=== PATIENT | male | born 1950 | race Caucasian/White ===

== ENCOUNTER 2017-06-08 06:15 | Inpatient (IN) ==
[2017-06-08] MEDS ORDERED: 0.9 % Sodium Chloride 500 ML IVC ONE (06:49)
[2017-06-08 06:58] LABS: Basophils % 0.3 %; Eosinophils # 0.3 K/mcL (0.0-0.6); Eosinophils % 2.2 %; Hemoglobin 19.4 g/dL (12.9-16.9); Immature Granulocytes % 0.5 % (0-4); Lymphocytes # 1.8 K/mcL (0.6-4.6); Lymphocytes % 12.7 %; Mean Corpuscular Hemoglobin 29.8 pg (28.0-33.3); Mean Corpuscular Volume 87.4 fL (83.0-100.0); Mean Platelet Volume 9.5 fL (9.4-12.4); Monocytes # 1.1 K/mcL (0.0-1.3); Neutrophils # 10.6 K/mcL (1.6-8.9); Platelet Count 197 K/mcL (140-400); Red Blood Count 6.52 M/mcL (4.19-5.50); Red Cell Distribution Width 13.9 % (11.5-14.5); Segmented Neutrophils % 76.3 %
[2017-06-08 07:11] LABS: Alanine Aminotransferase 23 Units/L (7-52); Albumin 4.2 g/dL (3.5-5.7); Albumin/Globulin Ratio 1.6 (1.1-2.2); Alkaline Phosphatase 91 Units/L (34-104); Aspartate Amino Transferase 22 Units/L (13-39); BUN/Creatinine Ratio 23 (6-26); Bilirubin,Direct 0.2 mg/dL (0.0-0.2); Bilirubin,Indirect 0.8 mg/dL (0.0-1.2); Blood Urea Nitrogen 17 mg/dL (8-23); Calcium 9.1 mg/dL (8.6-10.3); Carbon Dioxide 23 mEq/L (23-29); Chloride 104 mEq/L (98-107); Globulin 2.7 g/dL (2.4-3.5); Glucose 175 mg/dL (70-105); Lipase 214 Units/L (11-82); Osmolality,Calculated 294 (280-300); Potassium 3.6 mEq/L (3.5-5.1); Sodium 139 mEq/L (136-145); Total Protein 6.9 g/dL (6.4-8.9); eGFR For African Americans > 60 (> 60); eGFR For Non-African Americans > 60 (> 60)
[2017-06-08] MEDS ORDERED: *HR* FentaNYL (PF) 100 MCG/2 ML VIAL IVP ONE ×2 (07:11→09:07)
[2017-06-08] MEDS ORDERED: Ondansetron 4 MG/2 ML VIAL IVP ONE ×2 (07:11→09:07)
[2017-06-08 07:14] LABS: Bilirubin,Urine Negative (Negative); Blood,Urine Negative (Negative); Clarity,Urine Clear (Clear); Color,Urine Yellow (Yellow); Glucose,Urine (UA) >=1000 mg/dL (Normal); Ketones,Urine 40 mg/dL (Negative); Leukocyte Esterase,Urine Negative (Negative); Nitrite,Urine Negative (Negative); PH,Urine 5.5 pH Units (5.0-8.0); Protein,Urine Negative (Neg-Trace); Specific Gravity,Urine > 1.030 (1.010-1.025); Urobilinogen,Urine Normal (Normal)
--- NOTE | 2017-06-08 07:14 | Emergency Department Note ---
Disposition Clinical Impression: Elevated lipase Abdominal pain Qualifiers: Abdominal location: epigastric Qualified Code(s): R10.13 - Epigastric pain Nausea and vomiting Qualifiers: Vomiting type: unspecified Vomiting Intractability: non-intractable Qualified Code(s): R11.2 - Nausea with vomiting, unspecified Disposition: Admitted As Inpatient Condition: Good Referrals: Delfina Clifton DO [Primary Care Provider] - Abdominal Pain HPI - General Chief Complaint: ED Abdominal Pain Stated Complaint: CP/ABD PAIN Time Seen by Provider: 06/08/17 06:32 Source: patient Mode of arrival: private vehicle Limitations: no limitations Nursing Notes Reviewed: Yes Vital Signs Reviewed: Yes - History of Present Illness HPI Narrative: 67-year-old male history of hypertension, diabetes, hyperlipidemia with prior abdominal surgical history of cholecystectomy who presents to the ER with chief complaint of abdominal pain nausea and vomiting. Reports intermittent abdominal pain for 4 days. Reports the pain is around his belly button and epigastric area. Denies prior history of pain like this in the past. He states during this time is been nauseated, belching and did have a couple episodes of emesis. Reports usually has a few bowel movements a day and last bowel movement was yesterday. He is reporting that he passing flatus. No fevers, dysuria or hematuria. No other complaints. Pt Subjective Complaint: abdominal pain Onset (ago): day(s) Consistency: intermittent Location: periumbilical, epigastric Pain Severity: moderate Pain Scale: 8 Quality: stabbing Radiation: none Migration to: no migration Improves with: nothing Worsens with: nothing Associated symptoms: Reports: nausea, vomiting. Denies: diarrhea, fever, dysuria, hematuria Treatments prior to arrival: none - Related Data Home Medications Medication Instructions Recorded Confirmed Acetaminophen [Tylenol] 650 mg PO BID PRN 05/12/17 06/08/17 Aspirin 81 mg PO DAILY 05/12/17 06/08/17 Canagliflozin [Invokana] 300 mg PO DAILY 05/12/17 06/08/17 Cyanocobalamin (Vitamin B-12) 1,000 mcg PO DAILY 05/12/17 06/08/17 [Vitamin B-12] Gabapentin [Neurontin] 300 mg PO HS 05/12/17 06/08/17 Omeprazole [PriLOSEC] 20 mg PO DAILY 05/12/17 06/08/17 Simvastatin [Zocor] 40 mg PO HS 05/12/17 06/08/17 hydroCHLOROthiazide 25 mg PO DAILY 05/12/17 06/08/17 [Hydrochlorothiazide] metFORMIN [Glucophage] 500 mg PO BIDWM 05/12/17 06/08/17 Allergies Allergy/AdvReac Type Severity Reaction Status Date / Time No Known Allergies Allergy Verified 06/08/17 06:27 All systems ED: reviewed and negative except as stated. Constitutional: Denies: fever Cardiovascular: Reports: chest pain Respiratory: Denies: dyspnea Gastrointestinal: Reports: abdominal pain, nausea, vomiting. Denies: diarrhea Genitourinary: Denies: dysuria, hematuria Abdominal Pain PMH - Past Medical History Medical history: Reports: diabetes, hypertension, kidney stones, TIA Male Surgical History: Reports: cholecystectomy Psychiatric history: Reports: PTSD - Social History Smoking status: Never smoker Alcohol use: Reports: none Drug use: Reports: none Physical Exam - General Limitations: no limitations General appearance: alert, in no apparent distress - Head Head exam: atraumatic - Eye Eye exam: Present: normal appearance - ENT ENT exam: normal exam - Neck Neck exam: Present: normal inspection - Chest Chest inspection: Present: normal inspection, symmetric chest wall rise - Respiratory Respiratory exam: Present: normal lung sounds bilaterally - Cardiovascular Cardiovascular exam: Present: regular rate, normal rhythm, normal heart sounds - Abdominal Exam Abdominal exam: Present: soft, tenderness (Patient has epigastric and periumbilical tenderness on exam without rigidity or guarding. He does appear to be distended on exam which he reports is new.), distention. Absent: guarding , rebound - Extremities Exam Extremities exam: Present: normal inspection, full ROM - Expanded Upper Extremity Exam Shoulder exam: Present: normal inspection, full ROM Arm exam: Present: normal inspection, full ROM Elbow exam: Present: normal inspection, full ROM Forearm/Wrist exam: Present: normal inspection, full ROM Hand exam: Present: normal inspection, full ROM - Expanded Lower Extremity Exam Hip/Pelvis exam: Present: normal inspection, full ROM Upper leg exam: Present: normal inspection, full ROM Knee exam: Present: normal inspection, full ROM Lower leg exam: Present: normal inspection, full ROM Ankle exam: Present: normal inspection, full ROM Foot/toe exam: Present: normal inspection, full ROM - Skin Skin exam: Present: warm, dry Course Course Narrative: Patient seen and examined. Vital signs reviewed. He is noted to have abdominal distention. He is complaining of pain in his epigastric area that feels like it is pushing up into his chest likely secondary to condition. However we will get an EKG, troponin, CT scan of the abdomen and pelvis with oral and IV contrast as well as labs and urinalysis. Patient given IV fluids, fentanyl and Zofran. Vital Signs Temperature 97.8 F 06/08/17 06:22 Pulse Rate 96 06/08/17 06:22 Respiratory Rate 20 06/08/17 06:22 Blood Pressure 157/87 06/08/17 06:22 O2 Sat by Pulse Oximetry 96 06/08/17 06:22 Temperature 97.8 F 06/08/17 06:22 Pulse Rate 90 06/08/17 07:12 Respiratory Rate 20 06/08/17 07:12 Blood Pressure 160/100 06/08/17 07:12 O2 Sat by Pulse Oximetry 93 06/08/17 07:12 Oxygen Delivery Oxygen Delivery Room Air Abdominal Pain - MDM Narrative Medical decision making narrative: 67-year-old male presents to the ER due to abdominal pain nausea and vomiting. Pain intermittently for 4 days. Woke up vomiting today. He is noted to have an elevated lipase of 214. CT scan without evidence of acute pathology. Patient given IV fluids, pain meds and nausea meds 2. He is admitted to the hospitalist service for further management. - Lab Data Lab results reviewed: Yes I reviewed the patient's lab results. Result diagrams: 06/08/17 06:33 06/08/17 06:33 Lab Results 06/08/17 06/08/17 06/08/17 Range/Units 06:33 06:33 06:33 WBC 13.8 H (4.3-11.1) K/mcL RBC 6.52 H (4.19-5.50) M/mcL Hgb 19.4 H (12.9-16.9) g/dL Hct 57.0 H (37.5-50.1) % MCV 87.4 (83.0-100.0) fL MCH 29.8 (28.0-33.3) pg MCHC 34.0 (31.6-35.5) g/dL RDW 13.9 (11.5-14.5) % Plt Count 197 (140-400) K/mcL MPV 9.5 (9.4-12.4) fL Immature Gran % 0.5 (0-4) % Seg Neutrophils % 76.3 % Lymphocytes % 12.7 % Monocytes % 8.0 % Eosinophils % 2.2 % Basophils % 0.3 % Neutrophils # 10.6 H (1.6-8.9) K/mcL Lymphocytes # 1.8 (0.6-4.6) K/mcL Monocytes # 1.1 (0.0-1.3) K/mcL Eosinophils # 0.3 (0.0-0.6) K/mcL Basophils # 0.0 (0.0-0.2) K/mcL Sodium 139 (136-145) mEq/L Potassium 3.6 (3.5-5.1) mEq/L Chloride 104 (98-107) mEq/L Carbon Dioxide 23 (23-29) mEq/L BUN 17 (8-23) mg/dL Creatinine 0.74 (0.70-1.30) mg/dL Est GFR ( Amer) > 60 (> 60) Est GFR (Non-Af Amer) > 60 (> 60) BUN/Creatinine Ratio 23 (6-26) Glucose 175 H (70-105) mg/dL Calculated Osmolality 294 (280-300) Lactic Acid 1.6 (0.5-2.2) mmol/L Calcium 9.1 (8.6-10.3) mg/dL Total Bilirubin 1.0 (0.3-1.0) mg/dL Direct Bilirubin 0.2 (0.0-0.2) mg/dL Indirect Bilirubin 0.8 (0.0-1.2) mg/dL AST 22 (13-39) Units/L ALT 23 (7-52) Units/L Alkaline Phosphatase 91 (34-104) Units/L Troponin I (< 0.04) ng/mL Serum Total Protein 6.9 (6.4-8.9) g/dL Albumin 4.2 (3.5-5.7) g/dL Globulin 2.7 (2.4-3.5) g/dL Albumin/Globulin Ratio 1.6 (1.1-2.2) Lipase 214 H (11-82) Units/L Urine Color (Yellow) Urine Clarity (Clear) Urine pH (5.0-8.0) pH Units Ur Specific [place] (1.010-1.025) Urine Protein (Neg-Trace) mg/dL Urine Glucose (UA) (Normal) mg/dL Urine Ketones (Negative) mg/dL Urine Blood (Negative) Urine Nitrite (Negative) Urine Bilirubin (Negative) Urine Urobilinogen (Normal) mg/dL Ur Leukocyte Esterase (Negative) Ur Culture Indicated? (NO) 06/08/17 06/08/17 Range/Units 06:33 06:56 WBC (4.3-11.1) K/mcL RBC (4.19-5.50) M/mcL Hgb (12.9-16.9) g/dL Hct (37.5-50.1) % MCV (83.0-100.0) fL MCH (28.0-33.3) pg MCHC (31.6-35.5) g/dL RDW (11.5-14.5) % Plt Count (140-400) K/mcL MPV (9.4-12.4) fL Immature Gran % (0-4) % Seg Neutrophils % % Lymphocytes % % Monocytes % % Eosinophils % % Basophils % % Neutrophils # (1.6-8.9) K/mcL Lymphocytes # (0.6-4.6) K/mcL Monocytes # (0.0-1.3) K/mcL Eosinophils # (0.0-0.6) K/mcL Basophils # (0.0-0.2) K/mcL Sodium (136-145) mEq/L Potassium (3.5-5.1) mEq/L Chloride (98-107) mEq/L Carbon Dioxide (23-29) mEq/L BUN (8-23) mg/dL Creatinine (0.70-1.30) mg/dL Est GFR ( Amer) (> 60) Est GFR (Non-Af Amer) (> 60) BUN/Creatinine Ratio (6-26) Glucose (70-105) mg/dL Calculated Osmolality (280-300) Lactic Acid (0.5-2.2) mmol/L Calcium (8.6-10.3) mg/dL Total Bilirubin (0.3-1.0) mg/dL Direct Bilirubin (0.0-0.2) mg/dL Indirect Bilirubin (0.0-1.2) mg/dL AST (13-39) Units/L ALT (7-52) Units/L Alkaline Phosphatase (34-104) Units/L Troponin I < 0.03 (< 0.04) ng/mL Serum Total Protein (6.4-8.9) g/dL Albumin (3.5-5.7) g/dL Globulin (2.4-3.5) g/dL Albumin/Globulin Ratio (1.1-2.2) Lipase (11-82) Units/L Urine Color Yellow (Yellow) Urine Clarity Clear (Clear) Urine pH 5.5 (5.0-8.0) pH Units Ur Specific [place] > 1.030 H (1.010-1.025) Urine Protein Negative (Neg-Trace) mg/dL Urine Glucose (UA) >=1000 H (Normal) mg/dL Urine Ketones 40 H (Negative) mg/dL Urine Blood Negative (Negative) Urine Nitrite Negative (Negative) Urine Bilirubin Negative (Negative) Urine Urobilinogen Normal (Normal) mg/dL Ur Leukocyte Esterase Negative (Negative) Ur Culture Indicated? NO (NO) - Radiology Data Radiology results reviewed: Yes I reviewed the patient's radiology results. Abdomen/Pelvis CT 06/08/17 08:00 IMPRESSION: 1. No acute abnormality. 2. New fine peripheral interstitial thickening within the bilateral bases due the due to interstitial edema or interstitial lung disease. D/ / Woody Sow MD / Woody Sow MD Interpreting Provider: Woody Sow MD - EKG Data EKG attestation: Yes I reviewed and interpreted this EKG. EKG results narrative: EKG demonstrates sinus rhythm with rate of 93 bpm. Left axis deviation. Normal intervals. Poor R-wave progression. No gross ST elevations or depressions. No acute ischemic findings. No significant changes from previous EKG dated 08/10/09. S.B.A.R. - S.B.A.R. Situation: Demographics, MOA Background: Presenting Complaint, Relevant PMH, Meds, & Allergies Assessment: Course and respsone to treatment, Exam Concerns, Patient/Family Expectation, Pertinant Lab Results Recommendation: Barrier(s) to disposition, Recommendation based on pending studies, treatments, or consults [place] Report Given to: Dr.Haley Hagan Repor Time: 09:41 Attestation Statement - Attestation Attestation: I examined this patient and my medical decision-making was reviewed with the Resident Physician, Dr. Jaramillo. I agree with the documented findings, disposition and treatment plan as described except to the extent set forth below. Patient is a 59-year-old white male with a history of diabetes, hypertension, hyperlipidemia presents to the emergency department today with a 4 day history of gradually worsening epigastric abdominal pain that radiates through to his back with worsening feelings of distention, and in the last 24 hours has developed nausea and vomiting. Patient is status post remote cholecystectomy and denies any alcohol intake. Patient states he has been moving his bowels fine he will have occasional loose stools and had one loose stool this morning but no history of diarrhea associated with his vomiting. Patient denies any fevers or chills, no ill contacts, no recent antibiotic use. I agree with the patient's physical exam findings as documented. Vital signs are stable. Patient's labs show mild leukocytosis with left shift as well as mild hyperglycemia without acidosis. Patient's lipase is elevated in the 200s. Patient's CT with IV contrast does not show any acute abdominal or pelvic pathology. Concerning with patient's symptoms, location of pain and elevated lipase that he has early acute pancreatitis. Patient will be continued on IV fluids, pain meds, nothing by mouth status and admitted for observation and serial abdominal exams. Patient agrees with this plan case was discussed with the hospitalist who accepted the patient for admission.
--- NOTE | 2017-06-08 10:52 | Internal Med History&Physical ---
Date of Encounter: 06/08/17 Time of Encounter: 09:00 Assessment and Plan (1) Acute pancreatitis Current visit: No Status: Acute -Patient with epigastric pain for several weeks to months, worsening in the last 3-4 days; last episode occurred 3 hours after eating pizza -Lipase slightly elevated at 214; no acute findings on abdominal CT -Will keep nothing by mouth with IV fluids and pain control Qualifiers: Acute pancreatitis complication: unspecified Qualified Code(s): K85.90 - Acute pancreatitis without necrosis or infection, unspecified (2) Diabetes Current visit: No Status: Acute -Blood glucose levels controlled; continue home oral diabetic medications Qualifiers: Qualified Code(s): E11.9 - Type 2 diabetes mellitus without complications (3) Hyperlipemia Current visit: No Status: Acute -Check fasting lipids; continue statin Qualifiers: Hyperlipidemia type: unspecified Qualified Code(s): E78.5 - Hyperlipidemia , unspecified (4) Dependent edema Current visit: No Status: Acute -Patient unsure why he takes medication but thinks because of lower extremity edema -Will hold hydrochlorothiazide. 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 Patient reports of intermittent epigastric pain which has occurred for approximately weeks to months but has worsened in the last 3-4 days. Patient describes discomfort as a gnawing ache with a severity of 8 out of 10 that is intermittent, lasting for minutes. Patient states the last episode occurred approximately 3 hours after eating pizza which he later also had nausea and vomiting. Patient decided come into the ER for evaluation. In the ER patient was found to have slightly increased lipase levels of 214; CT of the abdomen without any acute findings. Patient will be admitted to the medical surgical floor for management of acute pancreatitis. Past Med Surg Social Fam HX - Past Medical History Medical history: diabetes, hyperlipidemia, hypertension, kidney stones, TIA Psychiatric history: PTSD - Past Surgical History Surgical History: cholecystectomy - Social History Smoking Status: Never smoker Smokeless Tobacco Status: No Alcohol use: none Drug use: none Internal Medicine - H&P: Meds Acetaminophen [Tylenol] 650 mg PO BID PRN 05/12/17 [History] Aspirin 81 mg PO DAILY 05/12/17 [History] Canagliflozin [Invokana] 300 mg PO DAILY 05/12/17 [History] Cyanocobalamin (Vitamin B-12) [Vitamin B-12] 1,000 mcg PO DAILY 05/12/17 [ History] Gabapentin [Neurontin] 300 mg PO HS 05/12/17 [History] Omeprazole [PriLOSEC] 20 mg PO DAILY 05/12/17 [History] Simvastatin [Zocor] 40 mg PO HS 05/12/17 [History] hydroCHLOROthiazide [Hydrochlorothiazide] 25 mg PO DAILY 05/12/17 [History] metFORMIN [Glucophage] 500 mg PO BIDWM 05/12/17 [History] 3 Allergy/AdvReac Type Severity Reaction Status Date / Time No Known Allergies Allergy Verified 06/08/17 06:27 All Systems PM: A 10-system review of systems was performed and is negative for pertinent findings except as documented above in the HPI. - Constitutional Vitals: Temp Pulse Resp BP Pulse Ox 97.8 F 90 18 141/81 93 06/08/17 06:22 06/08/17 07:12 06/08/17 10:01 06/08/17 10:01 06/08/17 07:12 General appearance: Present: A&O X 3, no acute distress, obese - Eye Eye exam: Present: normal appearance - ENT ENT exam: Present: mucous membranes dry - Respiratory Respiratory exam: Present: CTAB. Absent: accessory muscle use, rales, rhonchi, wheezes - Cardiovascular Cardiovascular exam: Present: RRR, +S1, +S2. Absent: diastolic murmur, gallop, rubs, systolic murmur - GI/Abdominal GI/Abdominal exam: Present: tenderness (Generalized tenderness most pronounced in the epigastric region) - Neurological Exam Neurological exam: Present: oriented X3 - Psychiatric Psychiatric exam: Present: normal mood - Skin Skin exam: Present: normal color Internal Med - H&P Results - Labs CBC & Chem 7: 06/08/17 06:33 06/08/17 06:33 Labs: Short CBC 06/08/17 Range/Units 06:33 WBC 13.8 H (4.3-11.1) K/mcL Hgb 19.4 H (12.9-16.9) g/dL Hct 57.0 H (37.5-50.1) % Plt Count 197 (140-400) K/mcL Neutrophils # 10.6 H (1.6-8.9) K/mcL BMP 06/08/17 06:33 Sodium 139 Potassium 3.6 Chloride 104 Carbon Dioxide 23 BUN 17 Creatinine 0.74 Glucose 175 H Calcium 9.1 Cardiac Enzymes 06/08/17 Range/Units 06:33 Troponin I < 0.03 (< 0.04) ng/mL Liver Function 06/08/17 Range/Units 06:33 Total Bilirubin 1.0 (0.3-1.0) mg/dL Direct Bilirubin 0.2 (0.0-0.2) mg/dL AST 22 (13-39) Units/L ALT 23 (7-52) Units/L Alkaline Phosphatase 91 (34-104) Units/L Albumin 4.2 (3.5-5.7) g/dL Urine 06/08/17 Range/Units 06:56 Urine Color Yellow (Yellow) Urine Clarity Clear (Clear) Urine pH 5.5 (5.0-8.0) pH Units Ur Specific [place] > 1.030 H (1.010-1.025) Urine Protein Negative (Neg-Trace) mg/dL Urine Glucose (UA) >=1000 H (Normal) mg/dL - Impressions ITS Impressions Abdomen/Pelvis CT 06/08/17 08:00 IMPRESSION: 1. No acute abnormality. 2. New fine peripheral interstitial thickening within the bilateral bases due the due to interstitial edema or interstitial lung disease. D/ / Woody Sow MD / Woody Sow MD Interpreting Provider: Woody Sow MD
[2017-06-08] MEDS ORDERED: Naloxone 0.4 MG/ML INJ IVP PRN (11:10)
[2017-06-08] MEDS: Ketorolac 30 MG/ML VIAL IVP SCH ×3 (12:02→23:36)
[2017-06-08] MEDS: 0.9 % Sodium Chloride 1,000 ML IVC SCH ×2 (12:03→19:52)
[2017-06-08] MEDS: *HR* Heparin 5,000 UNIT/ML VIAL SQ SCH ×2 (14:17→19:58)
[2017-06-08] MEDS ORDERED: Gabapentin 300 MG CAPSULE PO SCH (21:00)
[2017-06-09] MEDS: 0.9 % Sodium Chloride 1,000 ML IVC SCH ×2 (01:31→03:50)
[2017-06-09 06:16] LABS: Basophils % 0.6 %; Eosinophils # 0.4 K/mcL (0.0-0.6); Eosinophils % 5.3 %; Hematocrit 50.3 % (37.5-50.1); Immature Granulocytes % 0.3 % (0-4); Lymphocytes # 1.8 K/mcL (0.6-4.6); Lymphocytes % 25.4 %; Mean Corpuscular Hemoglobin 30.3 pg (28.0-33.3); Mean Corpuscular Volume 89.2 fL (83.0-100.0); Mean Platelet Volume 9.3 fL (9.4-12.4); Monocytes # 0.7 K/mcL (0.0-1.3); Monocytes % 9.5 %; Neutrophils # 4.2 K/mcL (1.6-8.9); Platelet Count 143 K/mcL (140-400); Red Blood Count 5.64 M/mcL (4.19-5.50); Red Cell Distribution Width 13.6 % (11.5-14.5); Segmented Neutrophils % 58.9 %
[2017-06-09 06:19] LABS: Hemoglobin 17.1 g/dL (12.9-16.9)
[2017-06-09] MEDS: Ketorolac 30 MG/ML VIAL IVP SCH ×2 (06:38→12:00)
[2017-06-09] MEDS: *HR* Heparin 5,000 UNIT/ML VIAL SQ SCH (06:39)
[2017-06-09 06:56] LABS: BUN/Creatinine Ratio 24 (6-26); Blood Urea Nitrogen 19 mg/dL (8-23); Calcium 8.3 mg/dL (8.6-10.3); Carbon Dioxide 28 mEq/L (23-29); Chloride 106 mEq/L (98-107); Chol/HDL Ratio 3.5 (0-4.9); Cholesterol 91 mg/dL (< 200); Glucose 96 mg/dL (70-105); HDL Cholesterol 26 mg/dL (40-59); LDL Cholesterol,Calculated 42 mg/dL (0-99); Lipase 28 Units/L (11-82); Osmolality,Calculated 294 (280-300); Potassium 3.5 mEq/L (3.5-5.1); Sodium 141 mEq/L (136-145); Triglycerides 113 mg/dL (< 150); eGFR For African Americans > 60 (> 60); eGFR For Non-African Americans > 60 (> 60)
[2017-06-09] MEDS ORDERED: (Canagliflozin [Invokana] 300 MG) PO SCH (09:00)
[2017-06-09] MEDS ORDERED: Pantoprazole 40 MG VIAL IVP SCH (09:00)
[2017-06-09 10:53] VITALS: BP 98/61
--- NOTE | 2017-06-09 11:29 | Discharge Summary ---
<Kayley Katz - Last Filed: 06/09/17 11:33> Date of Encounter: 06/09/17 Time of Encounter: 11:17 - Discharge Diagnosis (1) Acute pancreatitis Priority: Primary Status: Acute Qualifiers: Acute pancreatitis complication: unspecified Qualified Code(s): K85.90 - Acute pancreatitis without necrosis or infection, unspecified (2) Diabetes Priority: Secondary Status: Acute Qualifiers: Qualified Code(s): E11.9 - Type 2 diabetes mellitus without complications (3) Hyperlipemia Priority: Secondary Status: Acute Qualifiers: Hyperlipidemia type: unspecified Qualified Code(s): E78.5 - Hyperlipidemia , unspecified (4) Dependent edema Priority: Secondary Status: Acute (5) DVT prophylaxis Priority: Secondary Status: Acute - Discharge Medications Prescriptions: Ondansetron HCl [Zofran] 4 mg PO Q8HR PRN #12 tablet PRN Reason: Nausea Home Medications: Acetaminophen [Tylenol] 650 mg PO BID PRN 05/12/17 [History] Aspirin 81 mg PO DAILY 05/12/17 [History] Canagliflozin [Invokana] 300 mg PO DAILY 05/12/17 [History] Cyanocobalamin (Vitamin B-12) [Vitamin B-12] 1,000 mcg PO DAILY 05/12/17 [ History] Gabapentin [Neurontin] 300 mg PO HS 05/12/17 [History] Omeprazole [PriLOSEC] 20 mg PO DAILY 05/12/17 [History] Simvastatin [Zocor] 40 mg PO HS 05/12/17 [History] hydroCHLOROthiazide [Hydrochlorothiazide] 25 mg PO DAILY 05/12/17 [History] metFORMIN [Glucophage] 500 mg PO BIDWM 05/12/17 [History] Ondansetron HCl [Zofran] 4 mg PO Q8HR PRN #12 tablet 06/09/17 [Rx] Allergies/Adverse Reactions: 3 Allergy/AdvReac Type Severity Reaction Status Date / Time No Known Allergies Allergy Verified 06/08/17 06:27 Date of admission: 06/08/17 13:21 Primary care physician: Raza Ingram Discharging clinician: Valentín Reis Anticipated date of discharge: 06/09/17 - Patient Status Disposition: Home, Self-Care Condition: Good Functional capacity at discharge: independent ambulation Overall status at discharge: patient is back to baseline - Discharge Instructions Instructions: Biliary Colic (GEN) Follow Up With: Teetee Fried CNP [Advanced Practice Nurse] - 06/13/17 1:00 pm Forms: ED Satisfaction Letter, Work/School Release Additional Instructions: follow up with PCP return if you have fever, chills, worsened abdominal pain. take zofran as needed should you have nausea - Diet and Activity Activity: resume usual activities as tolerated Diet: diabetic diet Hospital course: Mr. 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 Patient reports of intermittent epigastric pain which has occurred for approximately weeks to months but has worsened in the last 3-4 days. Patient describes discomfort as a gnawing ache with a severity of 8 out of 10 that is intermittent, lasting for minutes. Patient states the last episode occurred approximately 3 hours after eating pizza which he later also had nausea and vomiting. Patient decided come into the ER for evaluation. In the ER patient was found to have slightly increased lipase levels of 214; CT of the abdomen without any acute findings. Patient was admitted to the medical surgical floor for management of acute pancreatitis. He was started on IVF, protonix, and toradol. Upon discharge he reported that he no longer had abdominal pain or nausea. He requested a diet. He was afebrile, WBC WNL, lipase improving 28. Unknown cause of pancreatitis. Triglycerides WNL, Calcium WNL, gallbladder removed. He was alongside his . He is alert and oriented x3 with full capacity and stated a clear understanding of the treatment and plan. He is to follow up with his PCP. He is to return should he develop fever, chills, worsening abdominal pain. - Time Spent with Patient Total time spent providing and/or coordinating discharge services: Greater than 30 minutes - Constitutional Vitals: Temp Pulse Resp BP Pulse Ox 97.4 F L 74 16 98/61 94 06/09/17 10:46 06/09/17 10:46 06/09/17 10:46 06/09/17 10:46 06/09/17 10:46 General appearance: Present: A&O X 3, no acute distress, obese - Head Head exam: Present: atraumatic, normocephalic - Respiratory Respiratory exam: Present: CTAB. Absent: rales, rhonchi - Cardiovascular Cardiovascular exam: Present: RRR, +S1, +S2 - GI/Abdominal GI/Abdominal exam: Present: normal bowel sounds, soft. Absent: firm, guarding, tenderness - Extremities Exam Extremities exam: Absent: calf tenderness - Neurological Exam Neurological exam: Present: alert, oriented X3 - Psychiatric Psychiatric exam: Present: normal affect, normal mood - Skin Skin exam: Present: dry, intact <Valentín Reis H - Last Filed: 06/09/17 13:29> Date of Encounter: 06/09/17 Date of admission: 06/08/17 13:21 Primary care physician: Raza Ingram Hospital course: Mr. Logan is a 67 year old male - Time Spent with Patient Total time spent providing and/or coordinating discharge services: - Constitutional Vitals: Temp Pulse Resp BP Pulse Ox 97.4 F L 74 16 98/61 94 06/09/17 10:46 06/09/17 10:46 06/09/17 10:46 06/09/17 10:46 06/09/17 10:46 - Attending Attestation Polycythemia likely secondary to dehydration Time spent on this discharge 40 minutes I examined this patient and my medical decision-making was reviewed with the Resident Physician. I agree with the documented findings, disposition and treatment plan as described except to the extent set forth below.
--- NOTE | 2017-06-09 17:21 | Electrocardiograph Report ---
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
== END 2017-06-09 14:23 | disposition home or self-care (01) | DRG 440 ==
LOC: EMEROO 06:15 → 3ANU 06:15
PROVIDERS: ADMIT Internal Medicine; ATTEND Internal Medicine

== ENCOUNTER 2017-10-08 08:20 | Observation (INO) ==
[2017-10-08] MEDS ORDERED: Nitroglycerin 0.4 MG TAB.SUBL SL ONE (08:31)
[2017-10-08] MEDS ORDERED: 0.9 % Sodium Chloride 500 ML IVC ONE (08:31)
[2017-10-08] MEDS ORDERED: Aspirin 81 MG TAB.CHEW PO ONE (08:31)
[2017-10-08] MEDS ORDERED: Ondansetron 4 MG/2 ML VIAL IVP ONE (08:31)
[2017-10-08] MEDS ORDERED: GI Cocktail 40 ML EACH PO ONE (08:31)
--- NOTE | 2017-10-08 08:48 | Emergency Department Note ---
Disposition Clinical Impression: Chest pain Qualifiers: Chest pain type: unspecified Qualified Code(s): R07.9 - Chest pain, unspecified Disposition: Admitted As Inpatient Condition: Fair Referrals: Delfina Clifton DO [Primary Care Provider] - Forms: ED Satisfaction Letter Time of Disposition: 11:34 Chest Pain HPI - General Chief Complaint: ED Chest Pain Stated Complaint: chest pain Time Seen by Provider: 10/08/17 08:21 Source: patient, family Limitations: no limitations Vital Signs Reviewed: Yes Nursing Notes Reviewed: Yes - History of Present Illness HPI Narrative: 67-year-old male history of diabetes, hepatitis, hypertension, hyperlipidemia, presents with chest pain and epigastric pain. Patient states shortness of breath and nausea. He has had diarrhea but no emesis. Patient was advised primary care physician yesterday who told him pancreatitis and he needed to have a upper endoscopy. Patient states he had a remote history of a catheterization about 4 years ago but no history of stents. Patient denies history of CAD. Patient states that he has currently some mild pain in his chest, and his epigastric pain describes as a 6 out of 10 pain. Some belching as well. Pt complaint: chest pain Onset (ago): day(s) Duration: intermittent Pain Location: substernal Severity: moderate Severity scale (1-10): 8 Quality: aching, heaviness Pain Radiation: none Improves with: nothing Worsens with: nothing Associated symptoms: Reports: nausea. Denies: vomiting, diaphoresis, dyspnea, sense of impending doom - Related Data Home Medications Medication Instructions Recorded Confirmed Acetaminophen [Tylenol] 650 mg PO BID PRN 05/12/17 10/08/17 Aspirin 81 mg PO DAILY 05/12/17 10/08/17 Canagliflozin [Invokana] 300 mg PO DAILY 05/12/17 10/08/17 Cyanocobalamin (Vitamin B-12) 1,000 mcg PO DAILY 05/12/17 10/08/17 [Vitamin B-12] Gabapentin [Neurontin] 300 mg PO HS 05/12/17 10/08/17 Omeprazole [PriLOSEC] 20 mg PO DAILY 05/12/17 10/08/17 Simvastatin [Zocor] 40 mg PO HS 05/12/17 10/08/17 hydroCHLOROthiazide 25 mg PO DAILY 01/08/18 06/06/18 [Hydrochlorothiazide] metFORMIN [Glucophage] 250 mg PO BIDWM 05/12/17 10/08/17 Ondansetron HCl [Zofran] 4 - 8 mg PO Q4-6H PRN 10/08/17 10/08/17 Allergies Allergy/AdvReac Type Severity Reaction Status Date / Time No Known Allergies Allergy Verified 06/08/17 06:27 All systems ED: reviewed and negative except as stated. Review of Systems: As Per HPI Constitutional: Denies: fever, chills Eyes: Denies: eye pain ENT ED: Denies: ear pain Cardiovascular: Reports: as per HPI, chest pain Respiratory: Reports: cough Gastrointestinal: Reports: abdominal pain, nausea, diarrhea. Denies: as per HPI Genitourinary: Denies: urgency, dysuria Musculoskeletal: Reports: as per HPI Integumentary: Reports: as per HPI Neurological: Reports: as per HPI Psychiatric: Reports: as per HPI Chest Pain PMH - Past Medical History Medical history: Reports: diabetes, hypertension, kidney stones, TIA Surgical history: Reports: cholecystectomy Psychiatric history: Reports: PTSD - Social History Smoking Status: Never smoker Alcohol use: Reports: none Drug use: Reports: none Physical Exam Constitutional: Appears uncomfortabl, vital signs reviewed and wnl Neck: normal inspection, neck is supple, no JVD Resp: normal chest inspection, CTA bilaterally, no resp distress, no wheezes/ rales/rhonchi CV: RRR, no murmurs/gallops/rubs, S1 and S2 heard Extremity: +2 bilateral radial and posterial tibial pulses, no pedal edema GI: normal inspection, Soft, softly distended, mild tenderness to palpation epigastrium. Back: normal inspection, no tenderness to palpation Neuro: A&O3, no gross motor or sensory deficits bilaterally MSK: normal inspection, bilateral UE and LE with normal ROM Skin: No rashes, skin warm, dry, intact - General Limitations: no limitations General appearance: alert, in no apparent distress Course Course Narrative: Patient 59-year-old male with history of chest pain shortness of breath, he does have multiple risk factors for heart score 5, also epigastric pain,'s EKG shows no acute ischemic changes but he does possibly warrant workup and chest pain admission, although his pain is also epigastric. CBC BMP troponin, hepatic panel and lipase, chest x-ray EKG basic labs. - Reevaluation(s) Reevaluation #1: Patient was somewhat relieved with nitroglycerin, given with epigastric and chest pain multiple risk factors heart score of 5, even though the troponin EKG were unremarkable, patient will be admitted for chest pain rule out and possible evaluation for upper endoscopy, admitted to the hospitalist service Dr. Kunz excepting Vital Signs Temperature 97.6 F 10/08/17 08:22 Pulse Rate 68 10/08/17 08:22 Respiratory Rate 18 10/08/17 08:22 Blood Pressure 128/82 10/08/17 08:22 O2 Sat by Pulse Oximetry 98 10/08/17 08:22 Temperature 97.6 F 10/08/17 08:22 Pulse Rate 70 10/08/17 11:10 Respiratory Rate 18 10/08/17 11:10 Blood Pressure 109/67 10/08/17 11:10 O2 Sat by Pulse Oximetry 96 10/08/17 11:10 Oxygen Delivery Oxygen Delivery Room Air Chest Pain - Differential Diagnosis Likely: atypical chest pain, chest pain - Medical Records Medical records reviewed: Yes I reviewed the patient's medical records. - Lab Data Lab results reviewed: Yes I reviewed the patient's lab results. Result diagrams: 10/08/17 09:08 10/08/17 09:08 Lab Results 10/08/17 10/08/17 10/08/17 Range/Units 09:08 09:08 09:08 WBC 10.3 (4.3-11.1) K/mcL RBC 5.55 H (4.19-5.50) M/mcL Hgb 17.5 H (12.9-16.9) g/dL Hct 49.9 (37.5-50.1) % MCV 89.9 (83.0-100.0) fL MCH 31.5 (28.0-33.3) pg MCHC 35.1 (31.6-35.5) g/dL RDW 13.4 (11.5-14.5) % Plt Count 164 (140-400) K/mcL MPV 9.6 (9.4-12.4) fL Immature Gran % 0.4 (0-4) % Seg Neutrophils % 71.8 % Lymphocytes % 13.7 % Monocytes % 11.0 % Eosinophils % 2.9 % Basophils % 0.2 % Neutrophils # 7.4 (1.6-8.9) K/mcL Lymphocytes # 1.4 (0.6-4.6) K/mcL Monocytes # 1.1 (0.0-1.3) K/mcL Eosinophils # 0.3 (0.0-0.6) K/mcL Basophils # 0.0 (0.0-0.2) K/mcL PT 12.0 (9.4-12.1) Seconds INR 1.1 APTT 29.7 (26.0-36.0) Seconds Sodium (136-145) mEq/L Potassium (3.5-5.1) mEq/L Chloride (98-107) mEq/L Carbon Dioxide (23-29) mEq/L BUN (8-23) mg/dL Creatinine (0.70-1.30) mg/dL Est GFR ( Amer) (> 60) Est GFR (Non-Af Amer) (> 60) BUN/Creatinine Ratio (6-26) Glucose (70-105) mg/dL Calculated Osmolality (280-300) Calcium (8.6-10.3) mg/dL Total Bilirubin 0.7 (0.3-1.0) mg/dL Direct Bilirubin 0.2 (0.0-0.2) mg/dL Indirect Bilirubin 0.5 (0.0-1.2) mg/dL AST 25 (13-39) Units/L ALT 26 (7-52) Units/L Alkaline Phosphatase 82 (34-104) Units/L Troponin I (< 0.04) ng/mL Serum Total Protein 6.0 L (6.4-8.9) g/dL Albumin 4.0 (3.5-5.7) g/dL Globulin 2.0 L (2.4-3.5) g/dL Albumin/Globulin Ratio 2.0 (1.1-2.2) Lipase 88 H (11-82) Units/L 10/08/17 Range/Units 09:08 WBC (4.3-11.1) K/mcL RBC (4.19-5.50) M/mcL Hgb (12.9-16.9) g/dL Hct (37.5-50.1) % MCV (83.0-100.0) fL MCH (28.0-33.3) pg MCHC (31.6-35.5) g/dL RDW (11.5-14.5) % Plt Count (140-400) K/mcL MPV (9.4-12.4) fL Immature Gran % (0-4) % Seg Neutrophils % % Lymphocytes % % Monocytes % % Eosinophils % % Basophils % % Neutrophils # (1.6-8.9) K/mcL Lymphocytes # (0.6-4.6) K/mcL Monocytes # (0.0-1.3) K/mcL Eosinophils # (0.0-0.6) K/mcL Basophils # (0.0-0.2) K/mcL PT (9.4-12.1) Seconds INR APTT (26.0-36.0) Seconds Sodium 140 (136-145) mEq/L Potassium 4.3 (3.5-5.1) mEq/L Chloride 104 (98-107) mEq/L Carbon Dioxide 27 (23-29) mEq/L BUN 10 (8-23) mg/dL Creatinine 0.77 (0.70-1.30) mg/dL Est GFR ( Amer) > 60 (> 60) Est GFR (Non-Af Amer) > 60 (> 60) BUN/Creatinine Ratio 13 (6-26) Glucose 123 H (70-105) mg/dL Calculated Osmolality 290 (280-300) Calcium 9.1 (8.6-10.3) mg/dL Total Bilirubin (0.3-1.0) mg/dL Direct Bilirubin (0.0-0.2) mg/dL Indirect Bilirubin (0.0-1.2) mg/dL AST (13-39) Units/L ALT (7-52) Units/L Alkaline Phosphatase (34-104) Units/L Troponin I < 0.03 (< 0.04) ng/mL Serum Total Protein (6.4-8.9) g/dL Albumin (3.5-5.7) g/dL Globulin (2.4-3.5) g/dL Albumin/Globulin Ratio (1.1-2.2) Lipase (11-82) Units/L - Radiology Data Radiology results reviewed: Yes I reviewed the patient's radiology results. Abdomen/Pelvis CT 10/08/17 08:31 IMPRESSION: No evidence for acute intra-abdominal or intrapelvic pathology. No bowel obstruction or inflammation. No evidence for nephrolithiasis or urinary obstruction. Extensive colonic diverticulosis without evidence for acute diverticulitis. Status post cholecystectomy. Bilateral fat containing inguinal hernias. D/ / Ludin Murray MD / Ludin Murray MD Interpreting Provider: Ludin Murray MD Chest X-Ray 10/08/17 08:31 IMPRESSION: No significant interval change. No radiographic evidence of acute intrathoracic findings. D/ / Darnell Goode MD / Darnell Goode MD Interpreting Provider: Darnell Goode MD - EKG Data EKG attestation: Yes I reviewed and interpreted this EKG. EKG shows normal: sinus rhythm Rate: normal (72 bpm VA 186 QRS [address] segment elevations or depressions acute ischemic changes from previous EKG in June 2017. Left axis.) Heart Score - Score History: Slightly Suspicious EKG: Non Specific repolarisation Disturbance Age: Greater than 65 Risk Factors: Equal/Greater than 3 risk factor or history of atherosclerotic disease Troponin: Less than normal limit HEART Score Total: 5
[2017-10-08 09:20] LABS: Basophils % 0.2 %; Eosinophils # 0.3 K/mcL (0.0-0.6); Eosinophils % 2.9 %; Hematocrit 49.9 % (37.5-50.1); Hemoglobin 17.5 g/dL (12.9-16.9); Immature Granulocytes % 0.4 % (0-4); Lymphocytes # 1.4 K/mcL (0.6-4.6); Lymphocytes % 13.7 %; Mean Corpuscular HGB Conc 35.1 g/dL (31.6-35.5); Mean Corpuscular Hemoglobin 31.5 pg (28.0-33.3); Mean Corpuscular Volume 89.9 fL (83.0-100.0); Mean Platelet Volume 9.6 fL (9.4-12.4); Monocytes # 1.1 K/mcL (0.0-1.3); Neutrophils # 7.4 K/mcL (1.6-8.9); Platelet Count 164 K/mcL (140-400); Red Blood Count 5.55 M/mcL (4.19-5.50); Red Cell Distribution Width 13.4 % (11.5-14.5); Segmented Neutrophils % 71.8 %
[2017-10-08 09:21] LABS: INR 1.1
[2017-10-08 09:24] LABS: Activated Partial Thrombo Time 29.7 Seconds (26.0-36.0)
[2017-10-08 09:39] LABS: BUN/Creatinine Ratio 13 (6-26); Bilirubin,Direct 0.2 mg/dL (0.0-0.2); Bilirubin,Indirect 0.5 mg/dL (0.0-1.2); Bilirubin,Total 0.7 mg/dL (0.3-1.0); Blood Urea Nitrogen 10 mg/dL (8-23); Carbon Dioxide 27 mEq/L (23-29); Chloride 104 mEq/L (98-107); Potassium 4.3 mEq/L (3.5-5.1); Sodium 140 mEq/L (136-145); eGFR For African Americans > 60 (> 60)
[2017-10-08 09:40] LABS: Calcium 9.1 mg/dL (8.6-10.3); Glucose 123 mg/dL (70-105); Osmolality,Calculated 290 (280-300); Troponin I < 0.03 ng/mL (< 0.04); eGFR For Non-African Americans > 60 (> 60)
[2017-10-08] MEDS ORDERED: *HR* FentaNYL (PF) 100 MCG/2 ML VIAL IVP ONE (10:18)
--- NOTE | 2017-10-08 11:18 | Emergency Department Note ---
Disposition Clinical Impression: Chest pain Disposition: Admitted As Inpatient Condition: Fair General Adult HPI - General Chief complaint: ED Chest Pain Stated complaint: chest pain Time Seen by Provider: 10/08/17 08:21 Source: patient, family Limitations: no limitations - History of Present Illness Pain Scale: 8 - Related Data Home Medications Medication Instructions Recorded Confirmed Acetaminophen [Tylenol] 650 mg PO BID PRN 05/12/17 10/08/17 Aspirin 81 mg PO DAILY 05/12/17 10/08/17 Canagliflozin [Invokana] 300 mg PO DAILY 05/12/17 10/08/17 Cyanocobalamin (Vitamin B-12) 1,000 mcg PO DAILY 05/12/17 10/08/17 [Vitamin B-12] Gabapentin [Neurontin] 300 mg PO HS 05/12/17 10/08/17 Omeprazole [PriLOSEC] 20 mg PO DAILY 05/12/17 10/08/17 Simvastatin [Zocor] 40 mg PO HS 05/12/17 10/08/17 hydroCHLOROthiazide 25 mg PO DAILY 05/12/17 10/08/17 [Hydrochlorothiazide] metFORMIN [Glucophage] 250 mg PO BIDWM 05/12/17 10/08/17 Ondansetron HCl [Zofran] 4 - 8 mg PO Q4-6H PRN 10/08/17 10/08/17 Allergies Allergy/AdvReac Type Severity Reaction Status Date / Time No Known Allergies Allergy Verified 06/08/17 06:27 Constitutional: Denies: fever, chills Eyes: Denies: eye pain ENT ED: Denies: ear pain Cardiovascular: Reports: as per HPI, chest pain Respiratory: Reports: cough Gastrointestinal: Reports: abdominal pain, nausea, diarrhea. Denies: as per HPI Genitourinary: Denies: urgency, dysuria Musculoskeletal: Reports: as per HPI Integumentary: Reports: as per HPI Neurological: Reports: as per HPI Psychiatric: Reports: as per HPI Past Medical History - Past Medical History Medical history: Reports: diabetes, hypertension, kidney stones, TIA Surgical history: Reports: cholecystectomy Psychiatric history: Reports: PTSD - Social History Smoking Status: Never smoker Smokeless Tobacco Status: No Alcohol use: Reports: none Drug use: Reports: none Physical Exam - General Limitations: no limitations General appearance: alert, in no apparent distress Course Vital Signs Temperature 97.6 F 10/08/17 08:22 Pulse Rate 68 10/08/17 08:22 Respiratory Rate 18 10/08/17 08:22 Blood Pressure 128/82 10/08/17 08:22 O2 Sat by Pulse Oximetry 98 10/08/17 08:22 Temperature 97.9 F 10/08/17 15:27 Pulse Rate 71 10/08/17 15:27 Respiratory Rate 16 10/08/17 15:27 Blood Pressure 127/76 10/08/17 15:27 O2 Sat by Pulse Oximetry 93 10/08/17 15:27 Oxygen Delivery Oxygen Delivery Room Air Medical Decision Making - Lab Data Result diagrams: 10/08/17 09:08 10/08/17 09:08 Lab Results 10/08/17 10/08/17 10/08/17 Range/Units 09:08 09:08 09:08 WBC 10.3 (4.3-11.1) K/mcL RBC 5.55 H (4.19-5.50) M/mcL Hgb 17.5 H (12.9-16.9) g/dL Hct 49.9 (37.5-50.1) % MCV 89.9 (83.0-100.0) fL MCH 31.5 (28.0-33.3) pg MCHC 35.1 (31.6-35.5) g/dL RDW 13.4 (11.5-14.5) % Plt Count 164 (140-400) K/mcL MPV 9.6 (9.4-12.4) fL Immature Gran % 0.4 (0-4) % Seg Neutrophils % 71.8 % Lymphocytes % 13.7 % Monocytes % 11.0 % Eosinophils % 2.9 % Basophils % 0.2 % Neutrophils # 7.4 (1.6-8.9) K/mcL Lymphocytes # 1.4 (0.6-4.6) K/mcL Monocytes # 1.1 (0.0-1.3) K/mcL Eosinophils # 0.3 (0.0-0.6) K/mcL Basophils # 0.0 (0.0-0.2) K/mcL PT 12.0 (9.4-12.1) Seconds INR 1.1 APTT 29.7 (26.0-36.0) Seconds Sodium (136-145) mEq/L Potassium (3.5-5.1) mEq/L Chloride (98-107) mEq/L Carbon Dioxide (23-29) mEq/L BUN (8-23) mg/dL Creatinine (0.70-1.30) mg/dL Est GFR ( Amer) (> 60) Est GFR (Non-Af Amer) (> 60) BUN/Creatinine Ratio (6-26) Glucose (70-105) mg/dL Calculated Osmolality (280-300) Calcium (8.6-10.3) mg/dL Total Bilirubin 0.7 (0.3-1.0) mg/dL Direct Bilirubin 0.2 (0.0-0.2) mg/dL Indirect Bilirubin 0.5 (0.0-1.2) mg/dL AST 25 (13-39) Units/L ALT 26 (7-52) Units/L Alkaline Phosphatase 82 (34-104) Units/L Troponin I (< 0.04) ng/mL Serum Total Protein 6.0 L (6.4-8.9) g/dL Albumin 4.0 (3.5-5.7) g/dL Globulin 2.0 L (2.4-3.5) g/dL Albumin/Globulin Ratio 2.0 (1.1-2.2) Lipase 88 H (11-82) Units/L 10/08/17 Range/Units 09:08 WBC (4.3-11.1) K/mcL RBC (4.19-5.50) M/mcL Hgb (12.9-16.9) g/dL Hct (37.5-50.1) % MCV (83.0-100.0) fL MCH (28.0-33.3) pg MCHC (31.6-35.5) g/dL RDW (11.5-14.5) % Plt Count (140-400) K/mcL MPV (9.4-12.4) fL Immature Gran % (0-4) % Seg Neutrophils % % Lymphocytes % % Monocytes % % Eosinophils % % Basophils % % Neutrophils # (1.6-8.9) K/mcL Lymphocytes # (0.6-4.6) K/mcL Monocytes # (0.0-1.3) K/mcL Eosinophils # (0.0-0.6) K/mcL Basophils # (0.0-0.2) K/mcL PT (9.4-12.1) Seconds INR APTT (26.0-36.0) Seconds Sodium 140 (136-145) mEq/L Potassium 4.3 (3.5-5.1) mEq/L Chloride 104 (98-107) mEq/L Carbon Dioxide 27 (23-29) mEq/L BUN 10 (8-23) mg/dL Creatinine 0.77 (0.70-1.30) mg/dL Est GFR ( Amer) > 60 (> 60) Est GFR (Non-Af Amer) > 60 (> 60) BUN/Creatinine Ratio 13 (6-26) Glucose 123 H (70-105) mg/dL Calculated Osmolality 290 (280-300) Calcium 9.1 (8.6-10.3) mg/dL Total Bilirubin (0.3-1.0) mg/dL Direct Bilirubin (0.0-0.2) mg/dL Indirect Bilirubin (0.0-1.2) mg/dL AST (13-39) Units/L ALT (7-52) Units/L Alkaline Phosphatase (34-104) Units/L Troponin I < 0.03 (< 0.04) ng/mL Serum Total Protein (6.4-8.9) g/dL Albumin (3.5-5.7) g/dL Globulin (2.4-3.5) g/dL Albumin/Globulin Ratio (1.1-2.2) Lipase (11-82) Units/L Attestation Statement - Attestation Attestation: I examined this patient and my medical decision-making was reviewed with the Resident Physician. I agree with the documented findings, disposition and treatment plan as described except to the extent set forth below. Patient presents to the ED with a chief complaint of epigastric abdominal pain radiating to his chest. Onset about 1 AM today. He has had 2 other episodes where he has been here and to [facility]. He saw his PCP yesterday who wanted to have an endoscopy. On examination he is very uncomfortable with epigastric tenderness. Lungs clear. Plan. Cardiac workup with LFTs and lipase. Lipase elevated. Patient very uncomfortable. Will admit for pancreatitis and further workup.
[2017-10-08] MEDS ORDERED: Naloxone 0.4 MG/ML INJ IVP PRN (12:42)
[2017-10-08] MEDS ORDERED: Ondansetron 4 MG/2 ML VIAL IVP PRN (12:46)
--- NOTE | 2017-10-08 12:54 | Internal Med History&Physical ---
Date of Encounter: 10/08/17 Time of Encounter: 12:13 Internal Medicine - H&P: HPI Chief complaint: epigastric pain Admitted From: Home Plans for Post Hospital Care: Home History of present illness: Mr. Logan is a 67 year old male who has history of diabetes hypertension hyperlipidemia, morbid obesity, recent pancreatitis presenting emergency room for epigastric pain, on and off for over last 3-1/2 months. Pain is located epigastric area, its dull aching, constant, most of time it happens at midnight associated was nausea and SOB. the pain become more frequent recently, last night, he woke up with pain, pain was 10 out of 10, he went to primary care physician yesterday and he was told to get into admitted to for endoscopy. Patient denied any fever or chills no diarrhea or constipation. He had the chest pain workup her back to February 2017, had negative stress test and unremarkable echocardiogram EF was 60%. In the emergency room they did a CT scan did not show any acute process. lab was unremarkable troponin was negative. Patient had cardiac catheterization 4 years ago no stents. We will admit patient for GI workup, I spoke to jessica Rouse for diet now, then NPO after midnight, and did rule out acute coronary syndrome. Past Med Surg Social Fam HX - Past Medical History Medical history: diabetes, hypertension, kidney stones, TIA Additional medical history: sleep apnea Psychiatric history: PTSD - Past Surgical History Surgical History: cholecystectomy Additional surgical history: b/l total knee replacements - Social History Smoking Status: Never smoker Smokeless Tobacco Status: No Alcohol use: none Drug use: none - Family History Father Living Status: Hx Family Cancer: Yes (colon) Internal Medicine - H&P: Meds Acetaminophen [Tylenol] 650 mg PO BID PRN 05/12/17 [History] Aspirin 81 mg PO DAILY 05/12/17 [History] Canagliflozin [Invokana] 300 mg PO DAILY 05/12/17 [History] Cyanocobalamin (Vitamin B-12) [Vitamin B-12] 1,000 mcg PO DAILY 05/12/17 [ History] Gabapentin [Neurontin] 300 mg PO HS 05/12/17 [History] Omeprazole [PriLOSEC] 20 mg PO DAILY 05/12/17 [History] Simvastatin [Zocor] 40 mg PO HS 05/12/17 [History] hydroCHLOROthiazide [Hydrochlorothiazide] 25 mg PO DAILY 05/12/17 [History] metFORMIN [Glucophage] 250 mg PO BIDWM 05/12/17 [History] Ondansetron HCl [Zofran] 4 - 8 mg PO Q4-6H PRN 10/08/17 [History] 3 Allergy/AdvReac Type Severity Reaction Status Date / Time No Known Allergies Allergy Verified 06/08/17 06:27 All Systems PM: A 10-system review of systems was performed and is negative for pertinent findings except as documented above in the HPI. - Constitutional Vitals: Temp Pulse Resp BP Pulse Ox 97.6 F 70 18 118/75 96 10/08/17 08:22 10/08/17 11:10 10/08/17 11:56 10/08/17 11:56 10/08/17 11:10 General appearance: Present: A&O X 3, pleasant, obese, answers questions appropriately Exam: CONSTITUTIONAL: Patient appears as an age appropriate male male well developed , in no acute distress. EYES Clear sclerae, bilateral pupils are equal, reactive to light and accommodation. Extraocular movements are intact RESPIRATORY: No accessory muscle use, bilateral clear to auscultation, no wheezing, no crackles/rales. CARDIOVASCULAR: Regular heart rate, normal S1 and S2, no murmurs GASTROINTESTINAL: bowel sounds present, soft, no tenderness. No hepatosplenomegaly. No bilateral CVA tenderness MUSCULOSKELETAL: Joints in normal range of motion, no clubbing, no edema, no cyanosis. Bilateral peripheral pulses 2+ LYMPHATIC no lymphadenopathy in neck, groin and axilla bilaterally, no thyromegaly. NEUROLOGIC: CN II to XII are grossly intact, no focal neurological deficit. Deep tendon reflexes 2+ bilaterally. Normal light touch sensation to upper and lower extremity PSYCHIATRIC: Oriented x3, with good insight, mood is euthymic. No hallucinations or delusions. SKIN: Skin warm and dry, no rashes, no open wound. Internal Med - H&P Results - Labs CBC & Chem 7: 10/08/17 09:08 10/08/17 09:08 - Assessment and plan (1) Epigastric pain Current Visit: Yes Status: Acute Assessment and plan: Patient had epigastric pain on and off for 3-1/2 months. Associated was nausea and shortness of breath. CT abdomen was negative. We will consult GI for endoscopy. I spoke to Dr Knox. (2) Chest pain Current Visit: Yes Status: Acute Assessment and plan: Chest pain is atypical, located to epigastric area. 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
[2017-10-08] MEDS ORDERED: D5% in Water 1,000 ML IVC PRN (12:58)
[2017-10-08] MEDS ORDERED: *HR* Dextrose 50 % in Water (Syg) 50 ML SYRINGE IVP PRN (12:58)
[2017-10-08] MEDS ORDERED: Dextrose Gel 15 GM/37.5 ML TUBE PO PRN ×2 (12:58)
[2017-10-08] MEDS ORDERED: Insulin LISPRO 300 UNITS/3 ML VIAL SQ SCH ×2 (16:30→21:00)
[2017-10-08] MEDS: *HR* Heparin 5,000 UNIT/ML VIAL SQ SCH ×2 (18:07→21:27)
[2017-10-08] MEDS: 0.9 % Sodium Chloride w KCl 20 MEQ/1,000 ML MLS IVC SCH (18:08)
--- NOTE | 2017-10-08 18:18 | Electrocardiograph Report ---
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
[2017-10-08] MEDS ORDERED: Gabapentin 300 MG CAPSULE PO SCH (21:00)
[2017-10-09] MEDS: 0.9 % Sodium Chloride w KCl 20 MEQ/1,000 ML MLS IVC SCH (04:05)
[2017-10-09 04:08] LABS: Hemoglobin 16.6 g/dL (12.9-16.9); Mean Corpuscular HGB Conc 33.2 g/dL (31.6-35.5); Mean Corpuscular Hemoglobin 29.9 pg (28.0-33.3); Mean Corpuscular Volume 89.9 fL (83.0-100.0); Mean Platelet Volume 9.4 fL (9.4-12.4); Platelet Count 134 K/mcL (140-400); Red Blood Count 5.56 M/mcL (4.19-5.50); Red Cell Distribution Width 13.6 % (11.5-14.5)
[2017-10-09 04:26] LABS: BUN/Creatinine Ratio 13 (6-26); Blood Urea Nitrogen 10 mg/dL (8-23); Calcium 8.6 mg/dL (8.6-10.3); Carbon Dioxide 26 mEq/L (23-29); Chloride 107 mEq/L (98-107); Chol/HDL Ratio 2.8 (0-4.9); Cholesterol 99 mg/dL (< 200); Glucose 105 mg/dL (70-105); HDL Cholesterol 35 mg/dL (40-59); LDL Cholesterol,Calculated 39 mg/dL (0-99); Osmolality,Calculated 293 (280-300); Sodium 142 mEq/L (136-145); Triglycerides 123 mg/dL (< 150); eGFR For African Americans > 60 (> 60); eGFR For Non-African Americans > 60 (> 60)
[2017-10-09] MEDS: *HR* Heparin 5,000 UNIT/ML VIAL SQ SCH (05:23)
[2017-10-09] MEDS ORDERED: Canagliflozin [Invokana] 300 MG PO SCH (09:00)
[2017-10-09] MEDS ORDERED: Aspirin 81 MG TAB.CHEW PO SCH (09:00)
[2017-10-09] MEDS ORDERED: Cyanocobalamin (B-12) 1,000 MCG TABLET PO SCH (09:00)
--- NOTE | 2017-10-09 12:22 | Gastroenterology Consult Note ---
<Dakota Feldman - Last Filed: 10/09/17 12:19> Date of Encounter: 10/09/17 Time of Encounter: 10:45 - Assessment and plan (1) Epigastric pain Current Visit: Yes Status: Acute Assessment and plan: Continue PPI and complete EGD today to r/o esophagitis, gastritis, duodenitis, PUD, MW tear, or AVM. Patient educated regarding lifestyle modifications including: (1) avoidance of foods that may precipitate reflux (eg, coffee, alcohol, chocolate, fatty foods) . (2) avoidance of acidic foods that may precipitate heartburn (eg, citrus, carbonated drinks, spicy foods). (3) adoption of behaviors that may reduce esophageal acid exposure (see weight loss, smoking cessation, raising the head of the bed, and avoiding recumbency for 2-3 hours after meals). - Time Spent With Patient Total time spent is greater than 50% in coordination of care (as documented) at patient's floor/unit and/or counseling patient: GI History of Present Illness - Data of Consult Patient: new to practice Consult date: 10/09/17 Requesting Physician: Lilly Mcpherson CNP - Consult Narrative Reason for consult: Epigastric pain History of present illness: Mr. Logan is a 67 year old male with PMHx of DM, HTN, HLD, morbid obesity, recent pancreatitis presented to the ED for intermittent epigastric pain for the past 3-4 months. Pt reports the pain occurs at night and is associated with nausea and shortness of breath. He states this has been occuring more frequently , and went to his PCP and was told to get admitted for endoscopy. CT A/P with no acute process, but did show extensive diverticulosis. He denies fever, chills. He had cardiac workup in February 2017 with negative stress test and echo with EF 60%. Procedures: Colonoscopy 05/12/2017 Dr. Glass: Diverticulosis, repeat in 5 years. NSAIDs: ASA Anticoagulation: None Past Med Surg Social Fam HX - Past Medical History Medical history: diabetes, hypertension, kidney stones, TIA Additional medical history: sleep apnea Psychiatric history: PTSD - Past Surgical History Surgical History: cholecystectomy Additional surgical history: b/l total knee replacements - Social History Smoking Status: Never smoker Smokeless Tobacco Status: No Alcohol use: none Drug use: none - Family History Father Living Status: Hx Family Cancer: Yes (colon) - Gastrointestinal Gastrointestinal: Present: as per HPI - Constitutional Constitutional: as per HPI - EENT Eyes: as per HPI Ears: Present: as per HPI Nose, mouth and throat: Present: as per HPI - Cardiovascular Cardiovascular ROS: Present: as per HPI - Respiratory Respiratory IM: Present: as per HPI - Genitourinary Genitourinary: Absent: change in color, Urinary frequency - Neurological ROS Neurological GI: Present: as per HPI - Hematologic/Lymphatic Hematologic/Lymphatic pediatric: Present: as per HPI - Musculoskeletal Musculoskeletal ROS GI: Present: as per HPI - Integumentary Integumentary GI: Present: as per HPI - Psychiatric ROS Psychiatric GI: Present: as per HPI - Endocrine Endocrine IM: Present: as per HPI - Constitutional Vitals: Temp Pulse Resp BP Pulse Ox 97.8 F 64 17 101/64 95 10/09/17 11:15 10/09/17 11:15 10/09/17 11:15 10/09/17 11:15 10/09/17 11:15 General appearance: Present: cooperative, A&O X 3, no acute distress, answers questions appropriately - Head Head exam: Present: atraumatic, normocephalic - Eye Eye exam: Present: normal appearance, sclera anicteric - ENT ENT exam: Present: mucous membranes dry - Neck Neck exam general surgery: Present: normal inspection, trachea midline - Respiratory Respiratory exam: Present: CTAB. Absent: rales, rhonchi - Cardiovascular Cardiovascular exam: Present: RRR, +S1, +S2 - GI/Abdominal GI/Abdominal exam: Present: normal bowel sounds, soft, tenderness (epigastric), no peritoneal signs. Absent: distended, firm, guarding - Rectal Rectal exam: Present: deferred - Extremities Exam Extremities exam: Present: warm - Neurological Exam Neurological exam: Present: no focal deficits - Psychiatric Psychiatric exam: Present: normal affect, normal mood - Skin Skin exam: Present: dry, intact, normal color, warm Results - Labs CBC & Chem 7: 10/09/17 03:44 10/09/17 03:44 Labs: Last Result Calcium 8.6 mg/dL (8.6-10.3) 10/09/17 03:44 Troponin I < 0.03 ng/mL (< 0.04) 10/09/17 03:44 Triglycerides 123 mg/dL (< 150) 10/09/17 03:44 Entire Visit Hgb 16.6 g/dL (12.9-16.9) 10/09/17 03:44 Hct 50.0 % (37.5-50.1) 10/09/17 03:44 PT 12.0 Seconds (9.4-12.1) 10/08/17 09:08 Total Bilirubin 0.7 mg/dL (0.3-1.0) 10/08/17 09:08 AST 25 Units/L (13-39) 10/08/17 09:08 ALT 26 Units/L (7-52) 10/08/17 09:08 Lipase 88 Units/L (11-82) H 10/08/17 09:08 - ABG ABG results: PT/INR, D-dimer PT 12.0 Seconds (9.4-12.1) 10/08/17 09:08 Consult Discharge Plan - Plan Additional Instructions: Return to the emergency department as needed for any other problems or concerns , or if your symptoms return or worsen. Take your medications as directed, increase omeprazole to twice daily. Your new prescription is at your pharmacy. Return to your normal activities as tolerated. Implement lifestyle modifications including elevating the head if your bed, remaining upright for at least 2-3 hours after eating a meal, do not eat spicy, fatty, fried foods, exercise and weight loss will help ease your symptoms. Follow-up with your primary care provider in the next 7-10 days for a recheck. Referrals: Delfina Clifton DO [Primary Care Provider] - Gus Sow [Partnered Physician] - 11/03/17 2:40 pm Prescriptions: Omeprazole [PriLOSEC] 20 mg PO BIDAC #60 cap <Veronique Knox - Last Filed: 10/09/17 17:16> Date of Encounter: 10/09/17 Time of Encounter: 14:00 - Time Spent With Patient Total time spent is greater than 50% in coordination of care (as documented) at patient's floor/unit and/or counseling patient: GI History of Present Illness - Data of Consult Requesting Physician: Lilly Mcpherson CNP - Consult Narrative History of present illness: Mr. Logan is a 67 year old male - Constitutional Vitals: Temp Pulse Resp BP Pulse Ox 97.9 F 67 18 130/78 95 10/09/17 15:51 10/09/17 15:51 10/09/17 15:51 10/09/17 15:51 10/09/17 15:51 Results - Labs CBC & Chem 7: 10/09/17 03:44 10/09/17 03:44 Labs: Last Result Calcium 8.6 mg/dL (8.6-10.3) 10/09/17 03:44 Troponin I < 0.03 ng/mL (< 0.04) 10/09/17 03:44 Triglycerides 123 mg/dL (< 150) 10/09/17 03:44 Entire Visit Hgb 16.6 g/dL (12.9-16.9) 10/09/17 03:44 Hct 50.0 % (37.5-50.1) 10/09/17 03:44 PT 12.0 Seconds (9.4-12.1) 10/08/17 09:08 Total Bilirubin 0.7 mg/dL (0.3-1.0) 10/08/17 09:08 AST 25 Units/L (13-39) 10/08/17 09:08 ALT 26 Units/L (7-52) 10/08/17 09:08 Lipase 88 Units/L (11-82) H 10/08/17 09:08 - ABG ABG results: PT/INR, D-dimer PT 12.0 Seconds (9.4-12.1) 10/08/17 09:08 - Attending Attestation I have personally performed a face to face evaluation on this patient. I have reviewed and agree with the care plan. History and Exam by me shows: Patient seen complaining of epigastric pain with bloating does admit of having weight loss although most of it is intentional CT scan reviewed and is unremarkable pancreas is normal looking. Assessment: Epigastric pain with weight loss. Recommendation: EGD to rule out gastric/upper GI causes for his symptoms.
[2017-10-09] MEDS ORDERED: Propofol 500 MG/50 ML INFUS..BTL ONE (13:56)
[2017-10-09] MEDS ORDERED: Lidocaine -MPF 2% 2 ML VIAL ONE (13:57)
--- NOTE | 2017-10-09 14:39 | Anesthesia Evaluation PreOp ---
Date of Encounter: 10/09/17 Time of Encounter: 14:37 - Past History Planned Operation: EGD Cardiac History: HTN, Hyperlipidemia Pulmonary History: EVAN Dx CLINICAL SERVICES SPECIALIST History: TIA (remote), Other (PTSD) Other Medical History: Renal (Stones), Diabetes Type II, Other (recent pancreatitis) Anesthesia History: No Prior Anesthetic Complications, Past Anesthesia (GB, Patrick. TKR) Alcohol Use: none Drug use: none Medications and Allergies Acetaminophen [Tylenol] 650 mg PO BID PRN 05/12/17 [History] Aspirin 81 mg PO DAILY 05/12/17 [History] Canagliflozin [Invokana] 300 mg PO DAILY 05/12/17 [History] Cyanocobalamin (Vitamin B-12) [Vitamin B-12] 1,000 mcg PO DAILY 05/12/17 [ History] Gabapentin [Neurontin] 300 mg PO HS 05/12/17 [History] Omeprazole [PriLOSEC] 20 mg PO DAILY 05/12/17 [History] Simvastatin [Zocor] 40 mg PO HS 05/12/17 [History] hydroCHLOROthiazide [Hydrochlorothiazide] 25 mg PO DAILY 05/12/17 [History] metFORMIN [Glucophage] 250 mg PO BIDWM 05/12/17 [History] Ondansetron HCl [Zofran] 4 - 8 mg PO Q4-6H PRN 10/08/17 [History] 3 Allergy/AdvReac Type Severity Reaction Status Date / Time No Known Allergies Allergy Verified 06/08/17 06:27 - Meds/Allergy Pre-op Review Medications Reviewed: Yes Allergies Reviewed: Yes Beta Blockers on Current Med List: No Anesthesia Results - Labs 10/09/17 03:44 10/09/17 03:44 Date of Study: 02/21/2017 EV/EV echocardiogram Impressions: LVEF 60%. Normal LV chamber size and function. Mild concentric left ventricular hypertrophy. Atypical septal motion consistent with bundle branch block. Mild left ventricular diastolic dysfunction. Normal right ventricular structure and function. Unable to estimate RVSP due to lack of TR jet. No significant valvular dysfunction. Left Ventricular Wall Motion: Rest Echo Findings All wall segments showed normal motion. Stress 02/21/2018 EF-64% No Ischemia - Imaging EKG: report reviewed (SINUS RHYTHM WITH OCCASIONAL VENTRICULAR PREMATURE COMPLEXES PATTERN CONSISTENT WITH PULMONARY DISEASE) Anesthesia Exam Vital Signs/O2 Sat, Most Current Temp Pulse Resp BP Pulse Ox 97.8 F 65 16 132/72 97 10/09/17 11:15 10/09/17 14:25 10/09/17 14:25 10/09/17 14:25 10/09/17 14:25 Blood glucose: 108 NPO (# of Hours): > 8 hrs Pain Scale: 0 Pain Scale Used: Numeric (1 - 10) - HEENT Pupil (Motor): Pupils equal, EOMI Mallampati: III Teeth: Normal Oral Opening: Greater than 3 - CLINICAL SERVICES SPECIALIST LOC: Oriented CLINICAL SERVICES SPECIALIST Motor: Normal RUE, Normal LUE, Normal RLE, Normal LLE, Normal Face CLINICAL SERVICES SPECIALIST Sensory: Normal: RUE, LUE, RLE, LLE, Face - Cardiac Rhythm: Regular Murmur: None JVD: No Carotid Bruit: No - Pulmonary Breath Sounds: bilateral Clear Respiratory Effort: Symmetrical Anesthesia Assess/Plan ASA Score: 3 Modified Bárbara Scale for Level of Consciousness: Cooperative, oriented, and tranquil Anesthetic Plan: MAC Autologous Blood: Yes Monitoring Plan: Standard Monitors Recovery Plan: Other
[2017-10-09 15:53] VITALS: BP 130/78
--- NOTE | 2017-10-09 16:01 | Discharge Summary ---
- NOTES TO OUTPATIENT PROVIDER Notes to Outpatient Provider: Pt was admitted for epigastric pain and vomiting. Patient relates several month history of the same pain, normally associated with eating spicy or fatty foods. EGD done, polyp was removed, pathology is pending. GI recommends the patient institute lifestyle modifications including avoiding foods that may precipitate reflux, avoiding acidic foods, and weight loss, smoking cessation, elevating head of bed at bedtime, remaining upright for 2-3 hours after meals. Orders not resulted at time of discharge: Pending orders 10/09/17 15:23 Surgical Pathology [PTH] Routine Date of Encounter: 10/09/17 Time of Encounter: 11:20 - Discharge Diagnosis (1) Chest pain Priority: Secondary Status: Acute Assessment and Plan: Likely related to GERD, heartburn. Plan as above. Troponins negative, chest x-ray shows no evidence of acute intrathoracic findings. EKG shows sinus rhythm with occasional PVCs and old inferior NJ. Rate 72, QRS interval 186, QRS 107, QT 412/QTC 436. Patient indicates the pain as epigastric in nature and denies any associated symptoms of shortness of breath, diaphoresis, or radiation of pain. Qualifiers: Chest pain type: other chest pain Qualified Code(s): R07.89 - Other chest pain; R07.8 - Other chest pain (2) DVT prophylaxis Priority: Secondary Status: Acute Assessment and Plan: Heparin (3) Epigastric pain Priority: Secondary Status: Acute Assessment and Plan: She reports 3.5 month history of intermittent epigastric pain. Most recent episode was when patient was lying in bed, was awakened by the pain at 1 AM. He reports that the pain felt like his stomach is going to explode. He had intense pressure and vomiting. He reports that he had chili prior to bedtime. No nausea, vomiting, diarrhea, or constipation. Abdomen is soft and nontender to palpation. He denies symptoms currently. Patient takes PPI, states that he takes it daily and is compliant. CT abdomen and pelvis shows no evidence of acute intra-abdominal or intrapelvic pathology no bowel obstruction no evidence for nephrolithiasis or urinary obstruction status post cholecystectomy, bilateral fat-containing inguinal hernias, and extensive colonic diverticulosis without acute diverticulitis noted. Chest x-ray no significant interval change no acute intrathoracic findings. EGD today showed normal esophagus, single gastric polyp was retrieved. Enlarged gastric folds that were biopsied, normal examined duodenum. Recommendation await pathology reports, and institute lifestyle modifications including avoiding foods that may precipitate reflux or heartburn, and lifestyle modifications including weight loss, raising head of bed, not lying down for 2-3 hours after meals. Follow with primary care and GI after discharge Follow-up of recommendations Continue PPI, increased twice a day (4) Diabetes Priority: Secondary Status: Chronic Assessment and Plan: Well-controlled. Hemoglobin A1c 6.3% in March,. Continue home medications. 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 Continue home medications. Qualifiers: Hyperlipidemia type: unspecified Qualified Code(s): E78.5 - Hyperlipidemia , unspecified (6) Obesity (BMI 30-39.9) Priority: Secondary Status: Chronic Assessment and Plan: Chronic. Implement discussed lifestyle modifications. (7) GERD (gastroesophageal reflux disease) Priority: Secondary Status: Chronic Assessment and Plan: Continue PPI twice a day. Lifestyle modifications as mentioned above. Qualifiers: Esophagitis presence: esophagitis presence not specified Qualified Code(s) : K21.9 - Gastro-esophageal reflux disease without esophagitis Hospital course: Mr. Logan is a 67 year old male with past medical history including acute pancreatitis, diabetes, hyperlipidemia, obesity, GERD. Please see assessment and plan for hospital follow-up. Discharge discussed with: patient, family - Time Spent with Patient Total time spent providing and/or coordinating discharge services: Less than 30 minutes - Discharge Medications Prescriptions: Omeprazole [PriLOSEC] 20 mg PO BIDAC #60 cap Home Medications: Acetaminophen [Tylenol] 650 mg PO BID PRN 05/12/17 [History] Aspirin 81 mg PO DAILY 05/12/17 [History] Canagliflozin [Invokana] 300 mg PO DAILY 05/12/17 [History] Cyanocobalamin (Vitamin B-12) [Vitamin B-12] 1,000 mcg PO DAILY 05/12/17 [ History] Gabapentin [Neurontin] 300 mg PO HS 05/12/17 [History] Simvastatin [Zocor] 40 mg PO HS 05/12/17 [History] hydroCHLOROthiazide [Hydrochlorothiazide] 25 mg PO DAILY 05/12/17 [History] metFORMIN [Glucophage] 250 mg PO BIDWM 05/12/17 [History] Ondansetron HCl [Zofran] 4 - 8 mg PO Q4-6H PRN 10/08/17 [History] Omeprazole [PriLOSEC] 20 mg PO BIDAC #60 cap 10/09/17 [Rx] Allergies/Adverse Reactions: 3 Allergy/AdvReac Type Severity Reaction Status Date / Time No Known Allergies Allergy Verified 06/08/17 06:27 Date of admission: 10/08/17 11:43 Primary care physician: Raza Ingram Consults: 10/08/17 12:41 Consult to Gastroenterology [CONS] Routine Consulting Provider: Gastroenterology [facility] Reason for Consult: epigastric pain Call Completed: Yes Discharging clinician: Lilly Mcpherson Anticipated date of discharge: 10/09/17 - Constitutional Vitals: Temp Pulse Resp BP Pulse Ox 97.9 F 67 18 130/78 95 10/09/17 15:51 10/09/17 15:51 10/09/17 15:51 10/09/17 15:51 10/09/17 15:51 General appearance: Present: cooperative, A&O X 3, pleasant, obese, answers questions appropriately - Head Head exam: Present: atraumatic, normal inspection, normocephalic - Eye Eye exam: Present: normal appearance, conjuntiva pink, sclera anicteric - Neck Neck exam general surgery: Present: normal inspection, supple, trachea midline. Absent: lymphadenopathy, tenderness - Respiratory Respiratory exam: Present: chest wall tenderness, CTAB. Absent: accessory muscle use, rales, rhonchi, wheezes - Cardiovascular Cardiovascular exam: Present: RRR, +S1, +S2. Absent: diastolic murmur, gallop, rubs, systolic murmur - GI/Abdominal GI/Abdominal exam: Present: normal bowel sounds, soft, no peritoneal signs. Absent: distended, hepatomegaly, tenderness - Extremities Exam Extremities exam: Present: normal capillary refill, normal inspection, warm, radial pulses palpable and symmetrical. Absent: calf tenderness, cyanotic, pedal edema - Neurological Exam Neurological exam: Present: alert, CN II-XII intact, oriented X3, no focal deficits. Absent: altered, facial droop, speech deficit - Skin Skin exam: Present: dry, intact, normal color, warm. Absent: rash - Patient Status Disposition: Home, Self-Care Condition: Good Functional capacity at discharge: independent ambulation Overall status at discharge: patient is progressing back to baseline - Discharge Instructions Follow Up With: Delfina Clifton DO [Primary Care Provider] - Gus Sow [Partnered Physician] - 11/03/17 2:40 pm Additional Instructions: Return to the emergency department as needed for any other problems or concerns , or if your symptoms return or worsen. Take your medications as directed, increase omeprazole to twice daily. Your new prescription is at your pharmacy. Return to your normal activities as tolerated. Implement lifestyle modifications including elevating the head if your bed, remaining upright for at least 2-3 hours after eating a meal, do not eat spicy, fatty, fried foods, exercise and weight loss will help ease your symptoms. Follow-up with your primary care provider in the next 7-10 days for a recheck. - Diet and Activity Activity: as per physical therapy Diet: low fat, low cholesterol
== END 2017-10-09 18:11 | disposition home or self-care (01) ==
LOC: 3BNU 08:20 → EMEROO 08:20 → SUATTDRO 11:43 → 3BNU 12:12
PROVIDERS: ADMIT Hospitalist; ATTEND Registered Nurse
PROC: ENDOEBX (2017-10-09 13:00)